=== PATIENT | male | born 1960 | race Caucasian/White ===

== ENCOUNTER → 2023-08-20 | Outpatient (CLI) | payer BC, SELFPAY ==
--- OUTSIDE RECORDS SUMMARY | 2023-08-20 12:28 | XMS RPT_ITS | CCD ---
Author Name Unknown Address [address] [place] [address] Organization [facility] Care Team Providers Care Analytical Lab Technician Name Role Phone Denice Figueroa Unavailable Unavailable SEALKELLY SHAISTA JJavier Unavailable Unavailable SEALKELLY, SHAISTA JJavier Unavailable Unavailable SEALOCK, SHAISTA J. Unavailable Unavailable SEALKELLY SHAISTA JJavier Unavailable Unavailable Unavailable Primary Care Provider Unavailabl e Unavailable Primary Care Provider Unavailabl e Unavailable Primary Care Provider Unavailabl e SELF, SELF Referring Unavailable JULIUS CHOUDHARY Attending Unavailable Stanley GUTIERREZ, Gonzalez Torres Unavailable [facility] Unavailable Niurka GUTIERREZ, Dr. Ricardo Damon Unavailable [phone] Qing GUTIERREZ, Dr. Sap[facility]ks [facility]) Unavailable [facility], . [facility] office Unavailable Dr. Jamil Chapa MD Unavailable [phone] Marty GUTIERREZ, Dr. Chaudhary Unavailable [facility] Unavailable Yesica HARRISON, Shital Unavailable Charissa Knight PA-C Unavailable [phone] Brandi Garcia LPN Unavailable Unavailable Dianne Tabares LPN Unavailable Unavailable Moe Gonzalez MD Unavailable Josafat Dunlap PA-C Unavailable Mary Venegas LPN Unavailable Unavailable Gabbie KANG, Мария A Unavailable Unavaila ble Marthey RAILROAD DETECTIVE, Shaista Unavailable Unavailable Dorian RAILROAD DETECTIVE, Chas Unavailable Unavailable Igor RAILROAD DETECTIVE, Anali Unavailable Unavailable Jed KING, Seamus Reyes Unavailable Sarah POINTER HELPER, Lindsay Unavailable Unavailable Curt RAILROAD DETECTIVE, Jayda M Unavailable Unavailab yelitza Hurst RAILROAD DETECTIVE, Lesly Marcelo Unavailable Unavailab yelitza Davis MA, Mary Unavailable Unavailable Rohan Gonzales MD Unavailable Unavailable Unavailable GONZALEZ ANGEL Primary Care Unavailable GONZALEZ ANGEL Consulting Unavailable GONZALEZ ANGEL Attending Unavailable GONZALEZ ANGEL Admitting Unavailable PROVIDER, UNKNOWN Consulting Unavailable PROVIDER, UNKNOWN Consulting Unavailable PROVIDER, UNKNOWN Consulting Unavailable GONZALEZ ANGEL Consulting Unavailable SAEMUS ADKINS Admitting Unavailable SEAMUS ADKINS Primary Care Unavailable SEAMUS ADKINS Attending Unavailable PROVIDER, UNKNOWN Consulting Unavailable PROVIDER, UNKNOWN Consulting Unavailable PROVIDER, UNKNOWN Consulting Unavailable Allergies Allergy Classification Reported Allergen(s) Allergy Type Date of Onset Reaction(s) Facility (1 source) Ketorolac trometamol Propensity to adverse reactions to drug 06-21-2023 [facility] Medications Current Medications Medication Drug Class(es) Dates Sig (Normalized) Sig (Original) albuterol 0.83 mg/ml inhalation solution (4 sources) beta2-Adrenergic Agonist Start: 08-02-2023 albuterol sulfate 2.5 mg/3 mL (0.083 %) solution for nebulization ; 1 (one) nebule every 4-6 hours as needed for 0 days Quantity: 1 {Packet} Refills: 5 Ordered: 02-Aug-2023 MD Gonzalez Angel Start: 02-Aug-2023 Comments: Medication taken as needed. Completed/Discontinued Medications Medication Drug Class(es) Dates Sig (Normalized) Sig (Original) amLODIPine 5 mg oral tablet (2 sources) Dihydropyridine Calcium Channel Augustus Start: 08-31-2022 End: 09-28-2022 take 1 tablet by mouth once daily amLODIPine Besylate 5 MG Oral Tablet ; 1 (one) Tablet qd for 0 days Quantity: 90 {Tablet} Refills: 1 Ordered: 28-Sep-2022 MD Gonzalez Angel Start: 31-Aug-2022 End: 28-Sep-2022 Status: Inactive amoxicillin 875 mg / clavulanate 125 mg oral tablet (2 sources) Penicillin-class Antibacterial Start: 07-14-2023 End: 07-23-2023 amoxicillin 875 mg-potassium clavulanate 125 mg tablet ; 1 (one) tablet bid for 10 days Quantity: 20 {Tablet} Refills: 0 Ordered: 23-Jul-2023 PEARL Cartwright Start: 14-Jul-2023 End: 23-Jul-2023 Status: Inactive azithromycin 500 mg oral tablet (2 sources) Macrolide Antimicrobial Start: 10-19-2022 End: 10-22-2022 take 1 tablet by mouth once daily Zithromax 500 MG Oral Tablet ; 1 (one) Tablet qd for 3 days Quantity: 3 {Tablet} Refills: 0 Ordered: 19-Oct-2022 MD Gonzalez Angel Start: 19-Oct-2022 End: 22-Oct-2022 Status: Inactive benzonatate 100 mg oral capsule (2 sources) Non-narcotic Antitussive Start: 06-01-2023 End: 06-25-2023 benzonatate 100 mg capsule ; 1 (one) capsule tid prn cough for 0 days Quantity: 30 {Capsule} Refills: 0 Ordered: 25-Jun-2023 CHRISTINE Adkins Start: 01-Jun-2023 End: 25-Jun-2023 Status: Inactive cephalexin 500 mg oral capsule (2 sources) Cephalosporin Antibacterial Start: 05-27-2023 End: 06-06-2023 cephALEXin 500 mg capsule ; 2 (two) Capsule bid for 10 days Quantity: 40 {Capsule} Refills: 0 Ordered: 27-May-2023 MD Gonzalez Angel Start: 27-May-2023 End: 06-Jun-2023 Status: Inactive ciprofloxacin 500 mg oral tablet (4 sources) Quinolone Antimicrobial Start: 07-05-2023 End: 07-12-2023 ciprofloxacin 500 mg tablet ; 1 (one) Tablet two times daily for 7 days Quantity: 14 {Tablet} Refills: 0 Ordered: 05-Jul-2023 MD Gonzalez Angel Start: 05-Jul-2023 End: 12-Jul-2023 Status: Inactive Problems Active Problems Problem Classification Problem Date Documented Da te Episodic/Chronic Calculus of urinary tract (4 sources) Kidney stone; Translations: [Calculus of kidney] 03-21-2018 Episodic Chronic obstructive pulmonary disease and bronchiectasis (4 sources) Chronic obstructive lung disease; Translations: [Chronic obstructive pulmonary disease, unspecified] 08-11-2023 Chronic Chronic obstructive pulmonary disease and bronchiectasis (2 sources) Bronchitis; Translations: [Bronchitis, not specified as acute or chronic] 10-19-2022 Episodic Diverticulosis and diverticulitis (4 sources) Diverticulitis; Translations: [Diverticulitis of intestine, part unspecified, without perforation or abscess without bleeding] 07-23-2023 Chronic Essential hypertension (20 sources) Essential hypertension; Translations: [Essential (primary) hypertension] Onset: 03-09-2017 06-21-2023 Chronic Gastrointestinal hemorrhage (4 sources) Rectal hemorrhage; Translations: [Hemorrhage of anus and rectum] 09-16-2020 Episodic Genitourinary symptoms and ill-defined conditions (20 sources) Retention of urine; Translations: [Retention of urine, unspecified] Onset: 05-27-2015 06-21-2023 Episodic Gout and other crystal arthropathies (20 sources) Chronic primary gouty arthritis; Translations: [Idiopathic chronic gout, multiple sites, without tophus (tophi)] Onset: 03-09-2017 06-21-2023 Chronic Hyperplasia of prostate (16 sources) Benign prostatic hyperplasia; Translations: [Benign prostatic hyperplasia without lower urinary tract symptoms] 07-23-2023 Chronic Immunizations and screening for infectious disease (2 sources) Requires diphtheria, tetanus and pertussis vaccination; Translations: [Encounter for immunization] 03-18-2021 Episodic Miscellaneous mental health disorders (2 sources) Psychosexual dysfunction associated with inhibited sexual excitement; Translations: [Other sexual dysfunction not due to a substance or known physiological condition] 06-30-2011 Chronic Neoplasms of unspecified nature or uncertain behavior (1 source) Ependymoma ; 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, unspecified] Onset: 04-21-2017 06-21-2023 Chronic Neoplasms of unspecified nature or uncertain behavior (3 sources) Neoplastic disease; Translations: [Neoplasm of unspecified behavior of bone, soft tissue, and skin] Onset: 04-05-2017 06-21-2023 Episodic Osteoarthritis (4 sources) Osteoarthritis of left knee joint; Translations: [Unilateral primary osteoarthritis, left knee] 12-01-2023 Chronic Other aftercare (2 sources) Surgical follow-up; Translations: [Encounter for removal of sutures] 04-16-2017 Episodic Other aftercare (8 sources) Long-term (current) use of other medications 07-29-2011 Episodic Other connective tissue disease (2 sources) Inflammation of rotator cuff tendon; Translations: [Other shoulder lesions, unspecified shoulder] 06-20-2012 Episodic Other diseases of bladder and urethra (20 sources) Neurogenic bladder; Translations: [Neuromuscular dysfunction of bladder, unspecified] 07-23-2023 Chronic Other gastrointestinal disorders (8 sources) Constipation; Translations: [Constipation, unspecified] 09-14-2022 Episodic Other gastrointestinal disorders (8 sources) Diarrhea; Translations: [Diarrhea, unspecified] 06-02-2021 Episodic Past or Other Problems Problem Classification Problem Date Documented Date Episodic/Chronic Unclassified (1 source) WORK RELEASE FOR [employer] Onset: 05-19-2017 Unclassified (2 sources) Breathing trouble - The breathing trouble has been occurring in a persistent pattern for 1 day (Yesterday morning when he woke up he felt short of breath for a few hours. He did go to work and was feeling pretty good. 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 He wore two surgical masks. About 1:30am this morning, he woke up with nasal congestion and applied vicks to his nose. Fell back to sleep, then about 3:30am he woke up gasping for air and felt very short of breath, wheezy and chest tightness. He has trouble breathing until about 6am this morning.). The course has been decreasing. The breathing trouble is incapacitating ( I was scared , currently his symptoms are mild). It is described as tightness, shortness of breath and wheezing. The breathing trouble occurs when lying down. There has been no associated chest pain or fever / chills. Note for Breathing trouble : Patient was last seen by Dr. Angel on 07/14/2023 for cough. He was started on Augmentin X 10 days. He is currently scheduled for PFT on 07/27/2023. 07-23-2023 Unclassified (2 sources) Cold Symptoms - Symptoms include nasal congestion and productive cough. The onset was 1 month(s) ago. The symptoms occur constantly. The patient describes this as mild. Note for Upper respiratory infection : Has been on ATB w/ no effect. Was treated bu [facility] as COPD recent;ly 07-14-2023 Unclassified (2 sources) Cold Symptoms - Symptoms include productive cough and wheezing. Note for Upper respiratory infection : Pt had nasal congestion and runny nose for 2 weeks - was treated with Cephalexin on 05/27/2023 for sinusitis; given tessalon perles on 06/01 and Doxycycline on 06/07/2023. Current symptoms are cough, chest congestion, wheezing, and shortness of breath. 06-25-2023 Unclassified (2 sources) Cold Symptoms - Symptoms include runny nose, dry cough, fever and chills. The onset was 1 week(s) ago. The symptoms occur constantly. The patient describes this as moderate in severity and worsening. Current treatment includes allergy medications and acetaminophen. Note for Upper respiratory infection : Diarrhea. Covid test negative yesterday AM. reviewed by B 05-27-2023 Unclassified (2 sources) MCR Well Adult - In general the patient feels well with minor complaints (knee pain). The patient has a balanced diet. The patient does not exercise and sleeps 6 hours per night. The patient denies having trouble with bathing, dressing/grooming, toileting, preparing meals and ambulating. The patient denies having trouble with grocery shopping, driving, use of telephone, housework, laundry, preparing/taking medications and finances. Note for MCR Well Adult : Pt has a neurogenic bladder, self catheterizes 04-08-2023 Unclassified (2 sources) Red swollen face - Started with facial itching last evening, redness and swelling started this morning. Thinks an insect may have bit the back of his neck a few days ago. Also has started to drink an Herbal Tea (Tapee tea) last week to help with joint pain. reviewed by [facility] 11-17-2022 Unclassified (2 sources) Cough - The onset of the cough has been acute and has been occurring in a persistent pattern for 9 days. The course has been constant. The cough is characterized as productive of mucoid sputum. There is no sputum production. Associated symptoms include headache, nasal congestion, nasal discharge/stuffy nose and sore throat, while there is no fever. Note for Cough : mostly when laying down. reviewed by [facility] 10-19-2022 Unclassified (2 sources) UTI - Symptoms include urinary frequency, urinary urgency, hematuria, dark urine and flank pain (right side), but do not include dysuria, abdominal pain or back pain. The pain is located in the right flank. There is no radiation. The patient describes the pain as aching. Onset was sudden 2 day(s) ago. Onset followed catheterization (Patient regularly uses catheters at home due to a neurogenic bladder). The symptoms occur frequently. The patient describes this as moderate in severity and unchanged. Note for UTI : Tested positive for Covid 3 days ago. Reports mild COVID symptoms at this time and feels that he may be starting to improve. 10-13-2022 Unclassified (2 sources) Skin tags - Three skin tags on face. Here for removal. They get itchy and painful. bleed at time because they are easily traumatized. 08-03-2022 Unclassified (2 sources) Abdominal pain - The onset of the abdominal pain has been acute and has been occurring in an intermittent pattern for 6 days. The course has been recurrent. The pain is described as a moderate cramping. The pain is located in the entire abdomen. The symptoms are aggravated by meals (1/2 to 1 hour after eating). The symptoms have been associated with diarrhea and nausea, while the symptoms have not been associated with vomiting. Note for Abdominal pain : He had been eating a lot of tomatoes, cucumbers, and nuts 04-06-2022 Unclassified (2 sources) Well adult male - The patient feels well with minor complaints (Bilateral leg pain, right worse then left.), has good energy level and is sleeping well. The patient has a balanced diet. The patient exercises daily. The patient sleeps 6 (6-7) hours per night. Note for Well adult male : reviewed by [facility] 03-20-2022 Unclassified (2 sources) UTI - Symptoms include dysuria (burning in the area), hematuria and malodorous urine, but do not include urinary frequency, urinary urgency, dark urine, flank pain, abdominal pain or back pain. There is no assiciated pain. There is no radiation. The patient describes the pain as burning. Onset was sudden 1 day(s) ago. There is no known event that preceded symptom onset. The symptoms occur intermittently. The patient describes this as moderate in severity and improving (no blood today). Symptoms are not relieved by phenazopyridine, urinary anesthetics, cranberry juice or non-opioid analgesics. Associated symptoms do not include fever, chills, nausea, vomiting, urinary incontinence, urinary retention, urinary hesitancy, nocturia or urethral discharge. Risk factors do not include indwelling catheter (but he does straight cath himself to relieve his bladder every time), fecal incontinence, current , menopause or diaphragm use. 10-20-2021 Unclassified (2 sources) Well Adult, male - The patient feels well with minor complaints (complains of constipation and left shoulder pain.), has good energy level and is sleeping well. The patient has a balanced diet and takes no supplemental vitamins & iron. The patient does not exercise. The patient sleeps 7 hours per night. Note for Well Adult, male : C/O left shoulder pain, injured it years ago when he fell off a dozer. Left hip also hurts , has been gradually worsening. 03-18-2021 Unclassified (2 sources) UTI - Symptoms include dysuria, urinary frequency, urinary urgency and back pain. The pain is located in the back. Onset was sudden 4 day(s) ago. The symptoms occur constantly. The patient describes this as moderate in severity and worsening. Note for UTI : reviewed by [facility] 12-16-2020 Unclassified (2 sources) Rectal bleeding - The rectal bleeding has been occurring for hours (Had bowel movement at 5am this morning, thinks there was blood streaked on toilet paper. Had 2nd bowel movement 30 minutes later, then noticed blood in the toilet water and on toilet paper, states that the toilet paper was saturated with bright red blood. Stool was loose and not painful. No previous history of rectal bleeding. Has had hemorrhoid issues in the past-when he wiped today, thinks that he felt that his hemorrhoids were swollen.). The bleeding is characterized as blood streaking of toilet paper and bloody toilet bowl water. The accompanying symptoms include pain (some burning pain), but do not include painful bowel movements or itching. Note for Rectal bleeding : Last colonoscopy done 08/2013. 04-18-2020 Unclassified (2 sources) UTI - Symptoms include dysuria, urinary frequency and urinary urgency, but do not include dark urine, malodorous urine or flank pain. Onset was sudden 3 day(s) ago. Onset followed catheterization. The symptoms occur constantly. The patient describes this as moderate in severity and worsening. Note for UTI : reviewed by [facility] 12-27-2019 Unclassified (2 sources) Flank pain - The onset of the flank pain has been acute and has been occurring in a persistent pattern for 3 days. The course has been constant. The pain is described as a moderate a dull ache pain. The flank pain is described as being located in the left flank , and it radiates to the suprapubic area. The symptoms have been associated with fever, hematuria, history of passing a stone and nausea. Note for Flank pain : he has had kidney stones in the past. He was in ER 4 days ago w it and a stone was seen on CT [facility]. He had left over narcotic from last incident of stone 03-21-2018 Unclassified (2 sources) Abdominal pain - The onset of the abdominal pain has been sudden and has been occurring in a persistent pattern for 6 hours. The pain is described as a moderate dull ache and colicky pain. The pain is located in the left upper quadrant and radiates to the left flank. Note for Abdominal pain : -h/o kidney stones. Feels nauseated. He cannot give a urine sample, normally uses a straight cath 4x daily and did not bring any supplies with him. 12-22-2017 Unclassified (2 sources) Review Test Results - Pt here today to discuss test results which he had done through his work. He had the Biometric Screening done and has some abnormal results and was required to see PCP to review and discuss. Has hx of HTN and Gout. Pt has results with him.b Lipids were borderline ( HDL 35 , LDL 126 ). 11-01-2017 Unclassified (2 sources) UTI - Symptoms include dysuria, urinary frequency and back pain. There is no radiation. The patient describes the pain as dull. Onset was sudden 1 day(s) ago. Onset followed catheterization. The symptoms occur constantly. The patient describes this as moderate in severity and worsening. Note for UTI : had back surgery last week. reviewed by B 04-13-2017 Unclassified (2 sources) Constipation - The onset of the constipation has been acute and has been occurring in a persistent pattern for 2 months. The course has been constant. The frequency of bowel movements has been 3 per week. The symptoms have no relieving factors. There has been no associated abdominal distention, abdominal pain, nausea or vomiting. Note for Constipation : Had a colonoscopy in 2012 or 2013. Firm stool. Round hard stools. He has a hx of neurogenic bladder as well. Neurosurgery consult was never done because of insurance issues. 11-18-2016 Unclassified (2 sources) UTI - Symptoms include urinary frequency, dark urine and malodorous urine. There is no assiciated pain. Onset was sudden 5 day(s) ago (Started Wednesday with fever but that has gone away. Then came the frequency, odor and dark urine.). Onset followed none (Pt cath's twice a day for hx of neurogenic bladder.). The patient describes this as mild and improving. Associated symptoms do not include fever (No fever today.), chills, nausea or vomiting. Note for UTI : Has not tried any relieving mediations. Pt was treated February 24 with Cipro for UTI and UTI did clear. reviewed by [facility] 04-24-2016 Unclassified (2 sources) UTI - Symptoms include dysuria, urinary frequency, urinary urgency and hematuria. Onset was sudden 3 day(s) ago. Onset followed catheterization (self caths twice a day.). The symptoms occur constantly. The patient describes this as moderate in severity and unchanged. Associated symptoms include chills and urinary retention, but do not include fever. Note for UTI : reviewed by [facility] 02-25-2016 Unclassified (2 sources) Change in bowel habits - The onset of the change has been acute and has been occurring in a persistent pattern for 1 year. The course has been increasing. The change is described as moderate. Note for Change in bowel habits : Complains of frequent bowel movements. Occasional constipation along with occasional loose stools. Has decreased energy. Had a colonoscopy a couple of years ago.There are also concerns regarding his innervation. Urology felt he has neurogenic bladder and wanted him to get evaluated by neurologyHe feels like his legs are heavy and weak. 01-21-2016 Unclassified (2 sources) Back pain - The onset of the back pain has been acute and has been occurring in a persistent pattern for 1 month. The course has been constant. The pain is characterized as a dull ache. The pain is located in the upper back and lower back. There are no precipitating factors. Note for Back pain : Insurance has required physical therapy before scheduling any other testing. Referral has been sent. Patient has not heard back for PT yet. 08-19-2015 Unclassified (2 sources) Increase blood pressure - Is currently on Lisinopril 10mg daily. Had an elevated blood pressure at [facility] physical. Here to discuss medication options.He also injured his left shoulder 2 weeks ago while carrying a heavy load in an awkward position. Fingers feel numb. pain radiates down left arm. 07-31-2015 Unclassified (2 sources) Back pain - The onset of the back pain has been acute and has been occurring in a persistent pattern for 3 days. The course has been increasing. The pain is characterized as stabbing and shooting. The pain is located in the lower back and radiates to the lateral aspect of right leg and lateral aspect of left leg. There are no precipitating factors. Note for Back pain : I last saw him for this in 2009. He has seen chiropracter in the past. 04-03-2014 Unclassified (2 sources) Well Adult, male - The patient feels well with no complaints (Pt is here today for Wellness Physical. Has not had Tetanus shot in years but declines one today. Has been fasting so lipid and glucose done. ). The patient is not using any method of contraception at this time. The patient has a balanced diet and takes no supplemental vitamins & iron. The patient exercises 3 - 4 times per week. The patient sleeps 6 hours per night. Note for Well Adult, male : reviewed by B 12-04-2013 Unclassified (2 sources) Wart Removal - Pt here today to have wart on right middle finger. Has had this for couple months. Has used OTC medication which helped a little but has never gone completely away. He has caught it on different things and it cracks open but does not bleed. Just itches and very irritating. Here for evaluation and possible removal. reviewed by B 10-27-2013 Unclassified (2 sources) Bowel Problems - Pt here today to discuss Bowels. He noticed couple months ago that he has problems with constipation. Has to work hard at moving bowels and when he does he feels like he has not completely emptied out. His stools are not hard. They are very soft and at times even watery. Last good BM was this morning and was real flakey in appearance and loose. . Does not think he ever had a colonoscopy. Denies any abdominal pain but says he will pass some gas but finds himself burping a lot. Has used some Gas X in past and helps maybe a little. Pt has been exercising and when he does sit up can have some stool can leak. 07-14-2013 Unclassified (2 sources) Diarrhea - The diarrhea has been occurring in a persistent pattern for 4 weeks. The course has been recurrent. The stools are watery. The frequency of bowel movements has been 4 per day. There has been no associated abdominal pain. Note for Diarrhea : Has had diarrhea ever since prostate surgery October 27. He had laser vaporization of prostate. He was on ATBx for 10 days after surgery. Going 4-6 times per day . States it is very foul smelling and slimy 11-30-2012 Unclassified (2 sources) Urine problems - Pt here this evening because he is having problems holding his urine. This has been going on for about 3-4 months. Denies any pain or burning with urination. He states that there is no warning- he all of a sudden has to urinate and its come to the point where he may need to wear some depends to wear. He just is unable to control flow. Pt is unable to get specimen at this time.He is also here because he thinks he may have hurt left rotator cuff. He jumped off a dozer in February and landed wrong and hurt left shoulder.. Has limitied ROM and is painful. Has never had this checked and has not had any testing. He was hoping that he just strained or sprained it but he is wondering if he may have torn it. reviewed by [facility] 06-20-2012 Unclassified (2 sources) Cold Symptoms - Symptoms include sneezing, runny nose, purulent discharge, sore throat, dry cough (just started this morning.) and headache (and some SOB. Pulse ox 93%.), but do not include ear pain. The onset was sudden 3 day(s) ago. The patient describes this as moderate in severity and worsening (started in yesterday with joints aches and pains and had fever and chills all day. No fever right now.). Current treatment includes non-prescription cold medication (Sudafed on Wednesday.). Note for Cold Symptoms : reviewed by [facility] 12-21-2011 Unclassified (2 sources) Well Adult, male - The patient feels well with minor complaints (Has head cold, congestion. Is congested mainly in head runny nose. No fever. No ear pain or s/t. SLight cough. Started about 7 days ago. Only using nyquil at night to sleep.). Patient has not had bone density screening. Date of most recent cholesterol screening : (2008). Date of most recent glucose screening : (2008 and result was 92.). Patient has not had a Zostavax vaccine. Patient has not had a Pneumovax vaccine. Patient has not received a recent influenza vaccine. Last Tetanus booster: more than 10 year(s) ago. The patient has a balanced diet. Patient exercises 3 - 4 times per week (walks and splits wood several times a week.). Patient sleeps 7 hours per night. Note for Well Adult, male : reviewed by [facility] 10-30-2011 Unclassified (2 sources) Consultation - Would like to discuss personal issue. 06-30-2011 Urinary tract infections (4 sources) Urinary tract infections 06-24-2022 Results Test Name Value Interpretation Reference Range Facil ity Vital Signs Date Time Vital Sign Value Performing Clinician Faci lity 07-23-2023 10:15-0500 Body height 180.97 cm Мария Cartwright RN [employer] 07-23-2023 10:15-0500 Body mass index (BMI) [Ratio] 39.06 kg/m2 Мария Cartwright RN [employer] 07-23-2023 10:15-0500 Body surface area Derived from formula 2.45 m2 Мария Cartwright RN [employer]. 07-23-2023 10:15-0500 Body temperature 97.5 [degF] Мария Cartwright RN [employer] Encounters Encounter Date Encounter Type Care Provider Facility Start: 08-11-2023 End: 08-11-2023 Orders Gonzalez Angel MD Work Phone: [employer] Start: 07-27-2023 End: 07-27-[address] [facility] Start: 07-23-2023 End: 07-23-2023 Office outpatient visit 15 minutes Gonzalez [facility] MD [facility] Start: 07-14-2023 End: 07-14-2023 Office outpatient visit 15 minutes Gonzalez Angel MD Work Phone: [facility] Start: 06-25-2023 End: 06-25-[address] [facility] Start: 06-25-2023 End: 06-25-2023 Office outpatient visit 15 minutes Gonzalez [facility] Start: 06-21-2023 ambulatory SELF SELF Facility:[facility] Start: 06-21-2023 End: 06-21-2023 Office outpatient new 45 minutes Julius Choudhary MD Work Phone: [facility] Procedures Date Procedure Procedure Detail Performing Clinician Start: 07-14-2023 End: 08-11-2023 Brncdilat rspse spmtry pre&post-brncdilat admn Gonzalez Angel MD Work Phone: Start: 06-25-2023 End: 06-25-2023 Pressurized/nonpressurize d inhalation treatment Seamus Adkins PA-C Work Phone: Start: 06-25-2023 End: 06-28-2023 Chest x-ray Seamus Ashraf Work Phone: Plan of Treatment Date Care Activity Detail Author Start: 10-13-2023 Patient encounter procedure Medical; RTN OFFICE VISIT - 6 mos rtn [employer] Start: 13-Oct-2023 7:10 MD Gonzalez Angel [facility] Start: 04-23-2023 Influenza vaccination INFLUENZA VACCINE (#1) [facility] Start: 06-02-2021 Myocardial spect multiple studies Lexiscan Cardiolite Stress Test (24665) Start: 02-Jun-2021 Intent [facility] Start: 04-23-2021 Influenza vaccination given INFLUENZA VACCINE (#1) [facility] Start: 04-23-2020 Influenza vaccination given INFLUENZA VACCINE (#1) [facility] Start: 2009 Colonoscopy COLONOSCOPY 10 YR [facility] Start: 2009 Prostate specific antigen measurement PROSTATE CANCER SCREENING DISCUSSION [facility] Start: 2009 Screening for malignant neoplasm of colon [facility] Start: 2009 Zoster vaccine hzv live for subcutaneous use ZOSTER (SHINGLES) VACCINE (1 of 2) [facility] Start: 2004 Screening for malignant neoplasm of colon COLORECTAL CANCER SCREENING DISCUSSION [facility] Start: 1999 Lipid panel LIPID SCREENING [facility] Start: 1994 Fasting lipid profile LIPID SCREENING [facility] Start: 1978 Third diphtheria, tetanus and acellular pertussis (DTaP) vaccination TDAP (ADULT) [facility] Start: 1977 ANNUAL WELLNESS VISIT ANNUAL WELLNESS VISIT [facility] Start: 1974 HIV screening HIV SCREENING DISCUSSION [facility] Start: 1971 Adult depression screening assessment DEPRESSION SCREENING [facility] Start: 1971 Depression screening using PHQ-9 (Patient Health Questionnaire 9) score DEPRESSION SCREENING [facility] Start: 1970 Diphtheria + pertussis + tetanus vaccine (product) DTAP/TDAP/TD VACCINE (1 - Tdap) [facility] Start: 1959 COVID-19 VACCINE (#1) COVID-19 VACCINE (#1) [facility] Start: 1959 Hepatitis C screening [facility] Start: 1959 Tetanus vaccination TETANUS [facility] Sumeet post-voiding residual urine&/bladder cap DE SUMEET,POST-VOID RES,US,NON-IMAGING DE Charge Routine Urinary retention Ordered: 06/21/2023 [facility] Immunizations Immunization Date Immunization Notes Care Provider Fa cilipoly 07-29-2022 influenza, high dose seasonal, preservative-free Gonzalez Angel MD Work Phone: [facility]. 05-10-2022 COVID-Pfizer (30 MCG/0.3 ML) Gonzalez Angel MD Work Phone: [facility]. 07-25-2021 COVID-Moderna (100 MCG/0.5 ML) Gonzalez Angel MD Work Phone: [facility] 06-23-2021 influenza, injectabl e, quadrivalent, contains preservative Gonzalez Angel MD Work Phone: [facility]; [facility]. 03-18-2021 tetanus toxoid, redu olivier diphtheria toxoid, and acellular pertussis vaccine, adsorbed Gonzalez Angel MD Work Phone: [facility]; [facility] Payers Date Payer Category Payer Unknown [id number] 2022 Unknown [id number] 1959 Unknown [id number] 1959 Unknown [id number] 1959 Unknown [id number] Social History Date Type Detail Facility Tobacco smoking stat [facility] Unknown if ever smoked [facility] Start: 1960 Sex Assigned At Not on file [facility] Start: 06-21-2023 Tobacco smoking stat [facility] Ex-smoker [facility] End: 08-23-2002 History of tobacco use Current smoker [facility] End: 08-23-2002 History of tobacco use Cigarette Smoker [facility] Start: 06-21-2023 Tobacco use and exposure User of smokeless tobacco [facility] History of tobacco use Snuff User [facility] Start: 06-21-2023 Alcohol intake Ex-drinker (finding) [facility] Start: 06-21-2023 History of Social function [facility]; [facility] Start: 06-21-2023 Tobacco use panel [facility] Alcohol Use: Alcohol Use: ; Moderate alcohol use. [facility] [employer] [facility] Tobacco Use: Tobacco Use: ; F ormer smoker. [facility]; [employer] [facility] Male [facility] [employer]; [employer] [facility] Work Phone: Moderate alcohol use [facility]; [facility] Work Phone: History of Present illness Narrative 06-21-2023 Madison Castaneda - 06/21/2023 9:45 AM FLAKITOTScosta Choudhary MD - 06/21/2023 9:45 AM EDT Note Date & Type Note Facility 06-21-2023 History of Present illness Narrative Bladder scan was performed for a residual of 30 ml. Patient tolerated well with no complaints. Results recorded to IHIS flow sheet Referring provider: Self, Self Chief Complaint Urinary retention, second opinion HPI Mr. Fulton is a 63 y.o. male with history of HTN, ED, gout who presents with urinary retention. He had issues with urinary retention ~8 years ago and had a PVP but continued to have retention. He has been doing CIC since that time. 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 Urinary symptoms unchanged after that surgery. He was seen by the [facility] for his persistent retention and had urodynamics which showed an atonic bladder. Would like a second opinion. He does well with CIC at home, generally no issues. His main complaint is that in the last month he has had a URI and the coughing causes him to leak occasionally. Past Medical History Past Medical History: Diagnosis Date Arthritis Erectile dysfunction Essential hypertension, benign Kidney stones Urinary retention Past Surgical History Past Surgical History: Procedure Laterality Date APPENDECTOMY BACK SURGERY cyst removed from spinal cord Medications Current Outpatient Medications Medication Sig Dispense Refill Allopurinol 300 MG tablet Take 0.5 tablets by mouth daily. lisinopril 40 MG tablet Take 1 tablet by mouth daily. tadalafil 20 MG tablet Take 1 tablet by mouth as needed. No current facility-administered medications for this visit. Allergies Allergies Allergen Reactions Toradol [Ketorolac Tromethamine] Psychosis Social History Social History Socioeconomic History Marital status: Single Tobacco Use Smoking status: Former Types: Cigarettes Quit date: 2002 Years since quittin.8 Smokeless tobacco: Current Types: Snuff Vaping Use Vaping Use: Never used Substance and Sexual Activity Alcohol use: Not Currently Drug use: Not Currently Family History No family history on file. Physical Exam BP (!) (P) 158/103 (BP Location: Right arm, BP Position: Sitting) Pulse (P) 73 Temp 98.2 F (36.8 C) Ht (P) 1.803 m (5' 11 ) Wt 126 kg (277 lb 11.2 oz) SpO2 (P) 93% BMI (P) 38.73 kg/m Smoking Status Former Body mass index is 38.73 kg/m (pended). Constitutional: NAD Pulmonary: Respirations are even and non-labored bilaterally. Neurological: A + O x 3 Extremities: CAROLIN x 4 Labs No results found for: TESTTOTBYLCM , TESTOSTERONE , TESTOSFREEDI , TESTOSTFR , SEXHORMBNDG , ESTRADIOLENH , PROLACTIN , FSH , LH , HCT , PSA No results found for: HGBA1C No results found for: TSH , IGU05OAY , XNB04SQM , TSHBASELINE , TSHULTRASEN No results found for: CHOLESTEROL , CHOLESTEPOCT , HDL , CHOLHDL , CHOLTOTALHDL The ASCVD Risk score (Cato DK, et al., 2019) failed to calculate for the following reasons: Cannot find a previous HDL lab Cannot find a previous total cholesterol lab Imaging I personally reviewed the following images: Assessment/Plan 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 - Long discussion with the patient that this is likely related to his thoracic tumor that has been resected. Likely this was causing problems prior to it being recognized. - I discussed that with an atonic bladder, the only options are CIC, SPT, or urethral catheter. All of these carry a risk of UTI, although CIC likely with the lowest risk. - Outside of his URI with coughing, he generally does very well with CIC 4-6 x per day - Advised he be evaluated yearly here or with his local urologist Julius Choudhary MD Master Control Technician of Urology documented in this encounter [facility] Evaluation note Note Date & Type Note Facility documented in this encounter [facility] Summary Purpose Family History No Family History Records Found Cancer Status:Active Comments:Father. Brother. Had throat cancer Cancer Status:Active Comments:Father. Brother. 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 Additional Source Comments (unrecognized sect ion and content) No Status Records FoundNo Status Records FoundNo Status Records FoundNo Status Records FoundNo Status Records FoundNo Status Records Found INFORMATION SOURCE (unrecogn ized section and content) DATE CREATED AUTHOR AUTHOR'S ORGANIZ ATION 04/27/2018 [facility] DATE CREATED AUTHOR AUTHOR'S ORGANIZ ATION 06/26/2021 [facility] DATE CREATED AUTHOR AUTHOR'S ORGANIZ ATION 04/02/2023 [facility] DATE CREATED AUTHOR AUTHOR'S ORGANIZ ATION 06/21/2023 [facility] DATE CREATED AUTHOR AUTHOR'S ORGANIZ ATION 08/20/2023 [facility] Reason for Visit (unrecogniz ed section and content) Specialty Diagnoses / Procedures Referred By Contac t Referred To Contact Urology Diagnoses cannot empty his bladder, Second opinion Procedures NEW UROLOGY Self, Self Julius Cohudhary MD [id number] [facility] [address] [place] [address] Referral ID Status Reason Start Date Expiration Date V isits Requested Visits Authorized [id number] Pending Review 06/21/2023 07/15/2024 1 1 FOR RECORDS PERTAINING TO PATIENTS WHO ARE OR HAVE BEEN ENROLLED IN A CHEMICAL DEPENDENCY/SUBSTANCEABUSE PROGRAM, SOME INFORMATION MAY BE OMITTED. This clinical summary was aggregated from multiple sources. Caution should be exercised in using it in the provision of clinical care. This summary normalizes information from multiple sources, and as a consequence, information in this document may materially change the coding, format and clinical context of patient data. In addition, data may be omitted in some cases. CLINICAL DECISIONS SHOULD BE BASED ON THE PRIMARY CLINICAL RECORDS. [facility] [employer] [facility]. provides no warranty or guarantee of the accuracy or completeness of information in this document.
[2023-08-20 12:50] VITALS: PULSE 79; PULSE 90; PULSE 93; PULSE 94; PULSE 96; PULSE 97; PULSE 99; O2SAT 91; O2SAT 92; O2SAT 93; O2SAT 94; O2SAT 95; O2SAT 96
--- NOTE | 2023-08-22 06:53 | PCM.PSN.6M ---
PSN 6 Minute Walk Test 6 Minute Walk Test 6 Minute Walk Test: 6 Minute Walk Test PSN:6-Minute Walk Test Start: 08/20/23 12:50 Freq: Status: Active Protocol: RESP.6MINW Document 08/20/23 12:50 EW (Rec: 08/20/23 13:08 EW Desktop) 6 Minute Walk Test Date Performed 08/20/23 Time Performed 12:30 Height 6 ft Weight: 280 lb Weight in Pounds 280.[address]: Musa Montgomery Assistive device used: None Pre-test Oxygen Delivery Method Room Air Pulse Ox 93 Pulse Rate (60-100) 79 Dyspnea Andria Scale (0-10) 2 Exertion Andria Scale (6-20) 8 1st minute Oxygen Delivery Method Room Air Pulse Ox 91 Pulse Rate (60-100) 93 2nd minute Oxygen Delivery Method Room Air Pulse Ox 92 Pulse Rate (60-100) 96 3rd minute Oxygen Delivery Method Room Air Pulse Ox 93 Pulse Rate (60-100) 97 4th minute Oxygen Delivery Method Room Air Pulse Ox 94 Pulse Rate (60-100) 97 5th minute Oxygen Delivery Method Room Air Pulse Ox 94 Pulse Rate (60-100) 99 6th minute Oxygen Delivery Method Room Air Pulse Ox 95 Pulse Rate (60-100) 94 Post-test Oxygen Delivery Method Room Air Pulse Ox 96 Pulse Rate (60-100) 90 Dyspnea Andria Scale (0-10) 2 Exertion Andria Scale (6-20) 9 Full Laps Walked 18 Partial Lap, Number of Tiles Walked 0 Total Distance Walked (ft) 1062 Interpretation Interpretation: The patient ambulated 1062 feet over the course of 6 minutes beginning on room air without assistive devices. Pretesting oxygen saturation was noted to be 93% on room air. With ambulation, the patricia oxygen saturation was 91%. There was no significant exertional oxygen desaturation. Recommendations Recommendations: There is no indication for the use of supplemental oxygen at this time.
== END | disposition home or self-care (01) ==
LOC: PSN 12:17
PROVIDERS: PCP Family Medicine; Referring Provider Internal Medicine Critical Care Medicine; Visit Provider Internal Medicine Critical Care Medicine
DX: R06.2 Wheezing (principal)
CPT/HCPCS: 94618

== ENCOUNTER → 2023-10-07 | Outpatient (CLI) | payer BC, SELFPAY ==
--- NOTE | 2023-10-07 08:02 | ECHOCS_ITS ---
Reason For Study: Dyspnea/SOB Procedure This was a 2D Doppler, Color Flow transthoracic echocardiogram. The study was technically difficult. Contrast injection was performed. Exam performed in department. Left Ventricle Normal LV size. The estimated ejection fraction is 55 %. No evidence for diastolic dysfunction. No regional wall motion abnormalities noted. Right Ventricle Normal RV size. Normal systolic function. Atria Normal left atrium. Normal right atrium. No doppler evidence for ASD. Mitral Valve There is no mitral valve stenosis. No mitral valve insufficiency. Tricuspid Valve There is no tricuspid stenosis. Unable to estimate RV systolic pressure due to inadequate jet, pulmonary artery pressure probably normal. Aortic Valve Trisinus/trileaflet aortic valve. There is no aortic stenosis. No aortic valve insufficiency. Pulmonic Valve There is no pulmonic valvular stenosis. No pulmonic valve insufficiency. Great Vessels Normal aortic root. Pericardium/Pleural No pericardial effusion. Medication 20 gauge I.V. with prn adaptor inserted into right arm. Diluted definity 2ml given slow IV push to enhance endocardial definition. MMode/2D Measurements & Calculations LVIDd: 6.0 cm IVSd: 0.95 cm Ao root diam: 3.9 cm LVIDs: 4.7 cm LVPWd: 0.97 cm LA dimension: 4.2 cm FS: 21.2 % LAV(MOD-bp): 59.3 ml LVAd ap4: 41.7 cm2 SV(MOD-sp4): 82.2 ml LAV(MOD-bp) Indexed: 24.1 ml/m2 LVLd ap4: 8.8 cm LAV(MOD-sp2): 50.2 ml EDV(MOD-sp4): 159.2 ml LAV(MOD-sp4): 63.0 ml EDV(sp4-el): 167.1 ml LVAs ap4: 27.5 cm2 LVLs ap4: 7.9 cm ESV(MOD-sp4): 77.0 ml ESV(sp4-el): 81.1 ml EF(MOD-sp4): 51.6 % EF(sp4-el): 51.5 % SV(sp4-el): 86.0 ml LA A4 area: 21.9 cm2 RA A4 area: 20.1 cm2 TAPSE: 1.7 cm Time Measurements MV dec time: 0.18 sec Doppler Measurements & Calculations MV E max tawanda: 53.6 cm/sec Lat Peak E' Tawanda: 6.5 cm/sec Med Peak E' Tawanda: 7.2 cm/sec MV A max tawanda: 62.1 cm/sec E/E' lat: 8.3 E/E' med: 7.5 MV E/A: 0.86 MV V2 max: 74.0 cm/sec MV P1/2t max tawanda: 71.4 cm/sec Ao V2 max: 105.2 cm/sec MV max P.2 mmHg MV P1/2t: 74.3 msec Ao max P.4 mmHg MV V2 mean: 43.7 cm/sec Ao V2 mean: 73.6 cm/sec MV mean P.88 mmHg MV dec slope: 281.7 cm/sec2 Ao mean P.5 mmHg MV V2 VTI: 24.1 cm MVA(P1/2t): 3.0 cm2 Ao V2 VTI: 22.8 cm LV V1 max: 77.6 cm/sec PA V2 max: 61.5 cm/sec LV V1 max P.4 mmHg ECHO/Echo Complete W/ Contrast Interpretation Summary The estimated ejection fraction is 55 %. No evidence for diastolic dysfunction. Ordering Physician: Musa Montgomery Referring Physician: Delon Angel Performed By: Gregorio Perez RCS
--- OUTSIDE RECORDS SUMMARY | 2023-10-07 08:09 | XMS RPT_ITS | CCD ---
Author Name Unknown Address [address] [place] [address] Organization [facility] Care Team Providers Care Lithographic Proofer Apprentice Name Role Phone Denice Figueroa Unavailable Unavailable SEALOCK, SHAISTA JJavier Unavailable Unavailable SEALOCK, SHAISTA J. Unavailable Unavailable SEALOCK, SHAISTA J. Unavailable Unavailable SEALOCK, SHAISTA J. Unavailable Unavailable Unavailable Primary Care Provider Unavailabl e Unavailable Primary Care Provider Unavailabl e Unavailable Primary Care Provider Unavailabl e SELF, SELF Referring Unavailable JULIUS CHOUDHARY Attending Unavailable Stanley GUTIERREZ, Gonzalez Torres Unavailable Medicine [facility], Pulmonary Unavailable Niurka GUTIERREZ, Dr. Ricardo Damon Unavailable Qing GUTIERREZ, Dr. Sparks ([facility]) Unavailable [facility], . [facility] office Unavailable Dr. Jamil Chapa MD Unavailable Marty GUTIERREZ, Dr. Chaudhary Unavailable [facility] Unavailable [phone] Yesica HARRISON, Shital Unavailable Charissa Knight PA-C Unavailable Brandi Garcia LPN Unavailable Unavailable Dianne Tabares LPN Unavailable Unavailable Moe Gonzalez MD Unavailable Josafat Dunlap PA-C Unavailable [phone] Theo HARRISON, Mary Unavailable Unavailable Gabbie KANG, Мария Shea Unavailable Unavaila ble Roge LOPEZN, Shaista Unavailable Unavailable Dorian LOPEZN, Chas Unavailable Unavailable Igor LOPEZN, Anali Unavailable Unavailable Adkins PA-C, Seamus J Unavailable Sarah PRO SHOP ATTENDANT, Lindsay Unavailable Unavailable Curt ENGINEERING TEST SPECIALIST, Jayda M Unavailable Unavailab yelitza Pelayo LPN, Lesly Marcelo Unavailable Unavailab yelitza Davis MA, Mary Unavailable Unavailable Rohan Gonzales MD Unavailable Unavailable Unavailable ABHIJIT ROSENBAUM MD Admitting Unavailable ABHIJIT ROESNBAUM MD Primary Care Unavailable ABHIJIT ROSENBAUM MD Attending Unavailable GONZALEZ ANGEL Consulting Unavailable PROVIDER, UNKNOWN Consulting Unavailable PROVIDER, UNKNOWN Consulting Unavailable PROVIDER, UNKNOWN Consulting Unavailable GONZALEZ ANGEL Admitting Unavailable GONZALEZ ANGEL Primary Care Unavailable GONZALEZ ANGEL Consulting Unavailable GONZALEZ ANGEL Attending Unavailable PROVIDER, UNKNOWN Consulting Unavailable PROVIDER, UNKNOWN Consulting Unavailable PROVIDER, UNKNOWN Consulting Unavailable SEAMUS ADKINS Admitting Unavailable SEAMUS ADKINS Primary Care Unavailable SEAMUS ADKINS Attending Unavailable GONZALEZ ANGEL Consulting Unavailable PROVIDER, UNKNOWN Consulting Unavailable PROVIDER, UNKNOWN Consulting Unavailable PROVIDER, UNKNOWN Consulting Unavailable Allergies Allergy Classification Reported Allergen(s) Allergy Type Date of Onset Reaction(s) Facility (1 source) Ketorolac trometamol Propensity to adverse reactions to drug 3 Psychosis [facility] (1 source) traMADol Drug Allergy [facility] Repository Medications Current Medications Medication Drug Class(es) Dates Sig (Normalized) Sig (Original) albuterol 0.83 mg/ml inhalation solution (20 sources) beta2-Adrenergic Agonist Start: 08-02-2023 albuterol sulfate 2.5 mg/3 mL (0.083 %) solution for nebulization ; 1 (one) nebule every 4-6 hours as needed for 0 days Quantity: 1 {Packet} Refills: 5 Ordered: 02-Aug-2023 MD Gonzalez Angel Start: 02-Aug-2023 Comments: Medication taken as needed. Completed/Discontinued Medications Medication Drug Class(es) Dates Sig (Normalized) Sig (Original) amLODIPine 5 mg oral tablet (11 sources) Dihydropyridine Calcium Channel Augustus Start: 08-31-2022 End: 09-28-2022 take 1 tablet by mouth once daily amLODIPine Besylate 5 MG Oral Tablet ; 1 (one) Tablet qd for 0 days Quantity: 90 {Tablet} Refills: 1 Ordered: 28-Sep-2022 MD Gonzalez Angel Start: 31-Aug-2022 End: 28-Sep-2022 Status: Inactive amoxicillin 875 mg / clavulanate 125 mg oral tablet (11 sources) Penicillin-class Antibacterial Start: 07-14-2023 End: 07-23-2023 amoxicillin 875 mg-potassium clavulanate 125 mg tablet ; 1 (one) tablet bid for 10 days Quantity: 20 {Tablet} Refills: 0 Ordered: 23-Jul-2023 PEARL Cartwright Start: 14-Jul-2023 End: 23-Jul-2023 Status: Inactive azithromycin 500 mg oral tablet (11 sources) Macrolide Antimicrobial Start: 10-19-2022 End: 10-22-2022 take 1 tablet by mouth once daily Zithromax 500 MG Oral Tablet ; 1 (one) Tablet qd for 3 days Quantity: 3 {Tablet} Refills: 0 Ordered: 19-Oct-2022 MD Gonzalez Angel Start: 19-Oct-2022 End: 22-Oct-2022 Status: Inactive benzonatate 100 mg oral capsule (11 sources) Non-narcotic Antitussive Start: 06-01-2023 End: 06-25-2023 benzonatate 100 mg capsule ; 1 (one) capsule tid prn cough for 0 days Quantity: 30 {Capsule} Refills: 0 Ordered: 25-Jun-2023 CHRISTINE Adkins Start: 01-Jun-2023 End: 25-Jun-2023 Status: Inactive cephalexin 500 mg oral capsule (11 sources) Cephalosporin Antibacterial Start: 05-27-2023 End: 06-06-2023 cephALEXin 500 mg capsule ; 2 (two) Capsule bid for 10 days Quantity: 40 {Capsule} Refills: 0 Ordered: 27-May-2023 MD Gonzalez Angel Start: 27-May-2023 End: 06-Jun-2023 Status: Inactive ciprofloxacin 500 mg oral tablet (20 sources) Quinolone Antimicrobial Start: 07-05-2023 End: 07-12-2023 ciprofloxacin 500 mg tablet ; 1 (one) Tablet two times daily for 7 days Quantity: 14 {Tablet} Refills: 0 Ordered: 05-Jul-2023 MD Gonzalez Angel Start: 05-Jul-2023 End: 12-Jul-2023 Status: Inactive Problems Active Problems Problem Classification Problem Date Documented Da te Episodic/Chronic Calculus of urinary tract (20 sources) Kidney stone; Translations: [Calculus of kidney] 03-21-2018 Episodic Chronic obstructive pulmonary disease and bronchiectasis (20 sources) Chronic obstructive lung disease; Translations: [Chronic obstructive pulmonary disease, unspecified] 08-11-2023 Chronic Chronic obstructive pulmonary disease and bronchiectasis (11 sources) Bronchitis; Translations: [Bronchitis, not specified as acute or chronic] 10-19-2022 Episodic Diverticulosis and diverticulitis (20 sources) Diverticulitis; Translations: [Diverticulitis of intestine, part unspecified, without perforation or abscess without bleeding] 07-23-2023 Chronic Essential hypertension (20 sources) Essential hypertension; Translations: [Essential (primary) hypertension] Onset: 03-09-2017 06-21-2023 Chronic Gastrointestinal hemorrhage (20 sources) Rectal hemorrhage; Translations: [Hemorrhage of anus and rectum] 09-16-2020 Episodic Genitourinary symptoms and ill-defined conditions (20 sources) Retention of urine; Translations: [Retention of urine, unspecified] Onset: 05-27-2015 06-21-2023 Episodic Gout and other crystal arthropathies (20 sources) Chronic primary gouty arthritis; Translations: [Idiopathic chronic gout, multiple sites, without tophus (tophi)] Onset: 03-09-2017 06-21-2023 Chronic Hyperplasia of prostate (20 sources) Benign prostatic hyperplasia; Translations: [Benign prostatic hyperplasia without lower urinary tract symptoms] 07-23-2023 Chronic Immunizations and screening for infectious disease (11 sources) Requires diphtheria, tetanus and pertussis vaccination; Translations: [Encounter for immunization] 03-18-2021 Episodic Miscellaneous mental health disorders (11 sources) Psychosexual dysfunction associated with inhibited sexual excitement; Translations: [Other sexual dysfunction not due to a substance or known physiological condition] 06-30-2011 Chronic Neoplasms of unspecified nature or uncertain behavior (1 source) Ependymoma ; 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, unspecified] Onset: 04-21-2017 06-21-2023 Chronic Neoplasms of unspecified nature or uncertain behavior (12 sources) Neoplastic disease; Translations: [Neoplasm of unspecified behavior of bone, soft tissue, and skin] Onset: 04-05-2017 06-21-2023 Episodic Osteoarthritis (20 sources) Osteoarthritis of left knee joint; Translations: [Unilateral primary osteoarthritis, left knee] 07-23-2023 Chronic Other aftercare (11 sources) Surgical follow-up; Translations: [Encounter for removal of sutures] 04-16-2017 Episodic Other aftercare (20 sources) Long-term (current) use of other medications 07-29-2011 Episodic Other connective tissue disease (11 sources) Inflammation of rotator cuff tendon; Translations: [Other shoulder lesions, unspecified shoulder] 06-20-2012 Episodic Other diseases of bladder and urethra (20 sources) Neurogenic bladder; Translations: [Neuromuscular dysfunction of bladder, unspecified] 07-23-2023 Chronic Other gastrointestinal disorders (20 sources) Constipation; Translations: [Constipation, unspecified] 09-14-2022 Episodic Other gastrointestinal disorders (20 sources) Diarrhea; Translations: [Diarrhea, unspecified] 06-02-2021 Episodic Past or Other Problems Problem Classification Problem Date Documented Date Episodic/Chronic Unclassified (1 source) WORK RELEASE FOR [place] Onset: 05-19-2017 Unclassified (11 sources) Breathing trouble - The breathing trouble [...] scheduled for PFT on 07/27/2023. 07-23-2023 Unclassified (11 sources) Cold Symptoms - Symptoms include nasal congestion and productive cough. The onset was 1 month(s) ago. The symptoms occur constantly. The patient describes this as mild. Note for Upper respiratory infection : Has been on ATB w/ no effect. Was treated bu [facility] as COPD recent;ly 07-14-2023 Unclassified (11 sources) Cold Symptoms - Symptoms include productive cough and wheezing. Note for Upper respiratory infection : Pt had nasal congestion and runny nose for 2 weeks - was treated with Cephalexin on 05/27/2023 for sinusitis; given tessalon perles on 06/01 and Doxycycline on 06/07/2023. Current symptoms are cough, chest congestion, wheezing, and shortness of breath. 06-25-2023 Unclassified (11 sources) Cold Symptoms - Symptoms include runny nose, dry cough, fever and chills. The onset was 1 week(s) ago. The symptoms occur constantly. The patient describes this as moderate in severity and worsening. Current treatment includes allergy medications and acetaminophen. Note for Upper respiratory infection : Diarrhea. Covid test negative yesterday AM. reviewed by [facility] 05-27-2023 Unclassified (11 sources) MCR Well Adult - In general [...] a neurogenic bladder, self catheterizes 04-08-2023 Unclassified (11 sources) Red swollen face - Started with facial itching last evening, redness and swelling started this morning. Thinks an insect may have bit the back of his neck a few days ago. Also has started to drink an Herbal Tea (Tapee tea) last week to help with joint pain. reviewed by [facility] 11-17-2022 Unclassified (11 sources) Cough - The onset of the [...] : mostly when laying down. reviewed by B 10-19-2022 Unclassified (11 sources) UTI - Symptoms include urinary frequency, [...] may be starting to improve. 10-13-2022 Unclassified (11 sources) Skin tags - Three skin tags on face. Here for removal. They get itchy and painful. bleed at time because they are easily traumatized. 08-03-2022 Unclassified (11 sources) Abdominal pain - The onset of [...] of tomatoes, cucumbers, and nuts 04-06-2022 Unclassified (11 sources) Well adult male - The patient feels well with minor complaints (Bilateral leg pain, right worse then left.), has good energy level and is sleeping well. The patient has a balanced diet. The patient exercises daily. The patient sleeps 6 (6-7) hours per night. Note for Well adult male : reviewed by B 03-20-2022 Unclassified (11 sources) UTI - Symptoms include dysuria (burning [...] , menopause or diaphragm use. 10-20-2021 Unclassified (11 sources) Well Adult, male - The patient [...] , has been gradually worsening. 03-18-2021 Unclassified (11 sources) UTI - Symptoms include dysuria, urinary frequency, urinary urgency and back pain. The pain is located in the back. Onset was sudden 4 day(s) ago. The symptoms occur constantly. The patient describes this as moderate in severity and worsening. Note for UTI : reviewed by [facility] 12-16-2020 Unclassified (11 sources) Rectal bleeding - The rectal bleeding [...] : Last colonoscopy done 08/2013. 04-18-2020 Unclassified (11 sources) UTI - Symptoms include dysuria, urinary frequency and urinary urgency, but do not include dark urine, malodorous urine or flank pain. Onset was sudden 3 day(s) ago. Onset followed catheterization. The symptoms occur constantly. The patient describes this as moderate in severity and worsening. Note for UTI : reviewed by [facility] 12-27-2019 Unclassified (11 sources) Flank pain - The onset of [...] from last incident of stone 03-21-2018 Unclassified (11 sources) Abdominal pain - The onset of [...] bring any supplies with him. 12-22-2017 Unclassified (11 sources) Review Test Results - Pt here today to discuss test results which he had done through his work. He had the Biometric Screening done and has some abnormal results and was required to see PCP to review and discuss. Has hx of HTN and Gout. Pt has results with him.b Lipids were borderline ( HDL 35 , LDL 126 ). 11-01-2017 Unclassified (11 sources) UTI - Symptoms include dysuria, urinary frequency and back pain. There is no radiation. The patient describes the pain as dull. Onset was sudden 1 day(s) ago. Onset followed catheterization. The symptoms occur constantly. The patient describes this as moderate in severity and worsening. Note for UTI : had back surgery last week. reviewed by [facility] 04-13-2017 Unclassified (11 sources) Constipation - The onset of the [...] done because of insurance issues. 11-18-2016 Unclassified (11 sources) UTI - Symptoms include urinary frequency, [...] and UTI did clear. reviewed by [facility] 04-24-2016 Unclassified (11 sources) UTI - Symptoms include dysuria, urinary frequency, urinary urgency and hematuria. Onset was sudden 3 day(s) ago. Onset followed catheterization (self caths twice a day.). The symptoms occur constantly. The patient describes this as moderate in severity and unchanged. Associated symptoms include chills and urinary retention, but do not include fever. Note for UTI : reviewed by [facility] 02-25-2016 Unclassified (11 sources) Change in bowel habits - The [...] legs are heavy and weak. 01-21-2016 Unclassified (11 sources) Back pain - The onset of [...] heard back for PT yet. 08-19-2015 Unclassified (11 sources) Increase blood pressure - Is currently on Lisinopril 10mg daily. Had an elevated blood pressure at [employer] physical. Here to discuss medication options.He also injured his left shoulder 2 weeks ago while carrying a heavy load in an awkward position. Fingers feel numb. pain radiates down left arm. 07-31-2015 Unclassified (11 sources) Back pain - The onset of [...] seen chiropracter in the past. 04-03-2014 Unclassified (11 sources) Well Adult, male - The patient [...] for Well Adult, male : reviewed by [facility] 12-04-2013 Unclassified (11 sources) Wart Removal - Pt here today to have wart on right middle finger. Has had this for couple months. Has used OTC medication which helped a little but has never gone completely away. He has caught it on different things and it cracks open but does not bleed. Just itches and very irritating. Here for evaluation and possible removal. reviewed by [facility] 10-27-2013 Unclassified (11 sources) Bowel Problems - Pt here today [...] have some stool can leak. 07-14-2013 Unclassified (11 sources) Diarrhea - The diarrhea has been [...] very foul smelling and slimy 11-30-2012 Unclassified (11 sources) Urine problems - Pt here this [...] torn it. reviewed by [facility] 06-20-2012 Unclassified (11 sources) Cold Symptoms - Symptoms include sneezing, [...] Note for Cold Symptoms : reviewed by [facility] 12-21-2011 Unclassified (11 sources) Well Adult, male - The patient [...] Well Adult, male : reviewed by B 10-30-2011 Unclassified (11 sources) Consultation - Would like to discuss personal issue. 06-30-2011 Unclassified (1 source) Cough, unspecified; Translations: [Cough, unspecified] Onset: 07-27-2023 Urinary tract infections (20 sources) Urinary tract infections 06-24-2022 Results Test Name Value Interpretation Reference Range Facil ity Vital Signs Date Time Vital Sign Value Performing Clinician Faci lity 09-02-2023 12:58-0500 Body temperature 97.2 [degF] Chas Alarcon LPN [employer] [facility] [employer] 09-02-2023 12:58-0500 Body weight 128.82 kg Chas Alarcon LPN [employer] [facility] [employer]. 09-02-2023 12:58-0500 Diastolic blood pressure 74 mm[Hg] Chas Alarcon LPN [employer] [facility] [employer] Encounters Encounter Date Encounter Type Care Provider Facility Start: 09-02-2023 End: 09-02-2023 Office outpatient visit 15 minutes Gonzalez Angel MD Work Phone: [facility] Start: 08-25-2023 End: 08-26-2023 ambulatory ABHIJIT GUTIERREZ [facility] Start: 08-11-2023 End: 08-11-2023 Orders Gonzalez Angel MD Work Phone: [facility] Start: 07-27-2023 End: 07-27-2023 ambulatory GONZALEZ [facility] Start: 07-23-2023 End: 07-23-2023 Office outpatient visit 15 minutes Gonzalez Angel MD Work Phone: [facility] Start: 07-14-2023 End: 07-14-2023 Office outpatient visit 15 minutes Gonzalez Angel MD Work Phone: [facility] Start: 06-25-2023 End: 06-25-2023 ambulatory [facility]US [facility] Start: 06-25-2023 End: 06-25-2023 Office outpatient visit 15 minutes Gonzalez Angel MD Work Phone: [facility] Start: 06-21-2023 ambulatory SELF SELF Facility:[facility] Start: 06-21-2023 End: 06-21-2023 Office outpatient new 45 minutes Julius Choudhary MD Work Phone: [facility] Procedures Date Procedure Procedure Detail Performing Clinician [...] RTN OFFICE VISIT - 6 mos rtn [facility] Start: 13-Oct-2023 7:10 MD [facility]el [facility] Start: 09-02-2023 Patient encounter procedure Medical; Hospital F/U - d/c 08/26, bronchitis [facility] Start: 02-Sep-2023 13:00 MD Gonzalez Angel Appointment Request [employer] [facility] Start: 04-23-2023 Influenza vaccination INFLUENZA VACCINE (#1) [facility] Start: 06-02-2021 Myocardial spect multiple studies Lexiscan Cardiolite Stress Test (61623) Start: 02-Jun-2021 Intent [employer] [facility]; [facility] [employer] Start: 04-23-2021 Influenza vaccination given INFLUENZA VACCINE (#1) [facility] Start: 04-23-2020 Influenza vaccination given INFLUENZA VACCINE (#1) [facility] Start: 2009 Colonoscopy COLONOSCOPY 10 YR [facility] Start: 2009 Prostate specific antigen measurement PROSTATE CANCER SCREENING DISCUSSION [facility] Start: 2009 Screening for malignant neoplasm of colon [facility] Start: 2009 Zoster vaccine hzv live for subcutaneous use ZOSTER (SHINGLES) VACCINE (1 of 2) [facility] Start: 2004 Screening for malignant neoplasm of colon COLORECTAL CANCER SCREENING DISCUSSION [facility] Start: 1999 Lipid panel LIPID SCREENING [facility] Start: 1994 Fasting lipid profile LIPID SCREENING [facility] Start: 1978 Third diphtheria, tetanus and acellular pertussis (DTaP) vaccination TDAP (ADULT) [facility] Start: 1977 ANNUAL WELLNESS VISIT ANNUAL WELLNESS VISIT [facility] Start: 1974 HIV screening HIV SCREENING DISCUSSION [facility] Start: 1971 Adult depression screening assessment DEPRESSION SCREENING [facility] Start: 1971 Depression screening using PHQ-9 (Patient Health Questionnaire 9) score DEPRESSION SCREENING [facility] Start: 1970 Diphtheria + pertussis + tetanus vaccine (product) DTAP/TDAP/TD VACCINE (1 - Tdap) [facility] Start: 1959 COVID-19 VACCINE (#1) COVID-19 VACCINE (#1) [facility] Start: 1959 Hepatitis C screening [facility] Start: 1959 [facility] post-voiding residual urine&/bladder cap OK SUMEET,POST-VOID RES,US,NON-IMAGING OK Charge Routine Urinary retention Ordered: 06/21/2023 [facility] Immunizations Immunization Date Immunization Notes Care Provider Fa cility 07-29-2022 influenza, high dose seasonal, preservative-free Gonzalez [facility] MD [facility]; [employer] [facility] 05-10-2022 COVID-Pfizer (30 MCG/0.3 ML) Gonzalze Angel MD [facility]: [facility]; [employer] [facility] 07-25-2021 COVID-Moderna (100 MCG/0.5 ML) Gonzalez Angel MD [facility]: [facility]; [employer]. 06-23-2021 influenza, injectabl e, quadrivalent, contains preservative Gonzalez Angel MD [facility]: [facility]; [employer]. 03-18-2021 tetanus toxoid, redu olivier diphtheria toxoid, and acellular pertussis vaccine, adsorbed Gonzalez Angel MD [facility]: [facility]; [facility] Payers Date Payer Category Payer Unknown [id number] 2022 Unknown [id number] 1960 Unknown [id number] 1959 Unknown [id number] 1959 Unknown [id number] 1959 Unknown [id number] Social History Date Type Detail Facility Tobacco smoking stat [facility] Unknown if ever smoked [facility] Start: 1960 Sex Assigned At Not on file [facility] Start: 06-21-2023 Tobacco smoking stat [facility] Ex-smoker [facility] End: 08-23-2002 History of tobacco use Current smoker [facility] End: 08-23-2002 History of tobacco use Cigarette Smoker [facility] Start: 06-21-2023 Tobacco use and exposure User of smokeless tobacco [facility] History of tobacco use Snuff User [facility] Start: 06-21-2023 Alcohol intake Ex-drinker (finding) [facility] Start: 06-21-2023 History of Social function [facility] Start: 06-21-2023 Tobacco use panel [facility] Alcohol Use: Alcohol Use: ; Moderate alcohol use. [facility] [employer] Tobacco Use: Tobacco Use: ; F ormer smoker. [facility].; [facility] [employer] Work Phone: Moderate alcohol use [facility].; [employer] Work Phone: History of Present illness Narrative 06-21-2023 Madison Castaneda - 06/21/2023 9:45 AM Quinn Choudhary MD - 06/21/2023 9:45 AM EDT Note Date & Type Note Facility 06-21-2023 History of Present illness Narrative Bladder scan was performed for a residual of 30 ml. Patient tolerated well with no complaints. Results recorded to IS flow sheet Referring provider: Self, Self Chief Complaint Urinary retention, second opinion HPI Mr. Lima is a 63 y.o. male with history [...] that surgery. 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 Brother. Had throat cancer [...] Comments:Father. Brother. 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 of Assistant Professor [employer] Technology Additional Source Comments (unrecognized sect ion and content) No Status Records FoundNo Status Records FoundNo Status Records FoundNo Status Records FoundNo Status Records FoundNo Status Records Found INFORMATION SOURCE (unrecogn ized section and content) DATE CREATED AUTHOR AUTHOR'S ORGANIZ ATION 04/27/2018 [facility] DATE CREATED AUTHOR AUTHOR'S ORGANIZ ATION 06/26/2021 [employer] DATE CREATED AUTHOR AUTHOR'S ORGANIZ ATION 04/02/2023 [facility] DATE CREATED AUTHOR AUTHOR'S ORGANIZ ATION 06/21/2023 [facility] DATE CREATED AUTHOR AUTHOR'S ORGANIZ ATION 08/27/2023 [facility] Reason for Visit (unrecogniz ed section and content) Specialty Diagnoses / Procedures Referred By Contmanny t Referred To Contact Urology Diagnoses cannot empty his bladder, Second opinion Procedures NEW UROLOGY Self, Self Julius Choudhary MD [address] [facility] [address] [place] [address] Referral ID Status Reason Start Date Expiration Date V isits Requested Visits Authorized [id number] Pending Review 06/21/2023 07/15/2024 1 1 FOR [...] BE BASED ON THE PRIMARY CLINICAL RECORDS. [employer] provides no warranty or guarantee of the accuracy or completeness of information in this document.
== END | disposition home or self-care (01) ==
LOC: CVS 08:02
PROVIDERS: PCP Family Medicine; Referring Provider Internal Medicine Critical Care Medicine; Visit Provider Internal Medicine Critical Care Medicine
DX: R06.2 Wheezing (principal)
CPT/HCPCS: 93306; Q9957; A4216; C8929

== ENCOUNTER → 2023-10-27 | Outpatient (CLI) | payer BC, SELFPAY | END | disposition home or self-care (01) | PROVIDERS: PCP Family Medicine; Referring Provider Internal Medicine Critical Care Medicine; Visit Provider Internal Medicine Critical Care Medicine | DX: G47.10 Hypersomnia, unspecified (principal); R06.2 Wheezing | CPT/HCPCS: 95810 ==

== ENCOUNTER → 2023-11-25 | Outpatient (CLI) | payer BC, SELFPAY | END | disposition home or self-care (01) | LOC: SL 12:32 | PROVIDERS: PCP Family Medicine; Visit Provider Internal Medicine Critical Care Medicine | DX: R69 Illness, unspecified (principal) ==

== ENCOUNTER → 2024-09-12 | Outpatient (CLI) | payer MEDICARE, OTHER, SELFPAY | END | disposition home or self-care (01) | PROVIDERS: PCP Family Medicine; Referring Provider Nurse Practitioner Family; Visit Provider Nurse Practitioner Family | DX: J41.0 Simple chronic bronchitis (principal) | CPT/HCPCS: 94060; 94726; 94729 ==

== ENCOUNTER → 2024-09-15 | Outpatient (CLI) | payer MEDICARE, OTHER, SELFPAY ==
[2024-09-15 12:37] VITALS: PULSE 100; PULSE 101; PULSE 102; PULSE 103; PULSE 106; PULSE 107; PULSE 91; PULSE 94; O2SAT 92; O2SAT 93; O2SAT 94; O2SAT 95
--- NOTE | 2024-09-19 09:53 | PCM.PSN.6M ---
PSN 6 Minute Walk Test 6 Minute Walk Test 6 Minute Walk Test: 6 Minute Walk Test PSN:6-Minute Walk Test Start: 09/15/24 12:36 Freq: Status: Active Protocol: RESP.6MINW Document 09/15/24 12:37 [facility] (Rec: 09/15/24 12:43 [facility] [id number]) 6 Minute Walk Test Date Performed 09/15/24 Time Performed 12:20 Height 6 ft Weight: 297 lb Weight in Pounds 297.[address]: Pratima Orozco Assistive device used: None Pre-test Oxygen Delivery Method Room Air Pulse Ox (%) 93 Pulse Rate (60-100 beats/min) 91 Dyspnea Andria Scale (0-10) 1 1st minute Oxygen Delivery Method Room Air Pulse Ox (%) 92 Pulse Rate (60-100 beats/min) 100 Dyspnea Andria Scale (0-10) 2 Number of Rests Taken 0 2nd minute Oxygen Delivery Method Room Air Pulse Ox (%) 93 Pulse Rate (60-100 beats/min) 101 H Dyspnea Andria Scale (0-10) 2 Number of Rests Taken 0 3rd minute Oxygen Delivery Method Room Air Pulse Ox (%) 93 Pulse Rate (60-100 beats/min) 102 H Dyspnea Andria Scale (0-10) 3 Number of Rests Taken 0 Reported Symptoms Increased Work of Breathing 4th minute Oxygen Delivery Method Room Air Pulse Ox (%) 93 Pulse Rate (60-100 beats/min) 103 H Dyspnea Andria Scale (0-10) 3 Number of Rests Taken 0 Reported Symptoms Increased Work of Breathing 5th minute Oxygen Delivery Method Room Air Pulse Ox (%) 94 Pulse Rate (60-100 beats/min) 107 H Dyspnea Andria Scale (0-10) 3 Number of Rests Taken 0 Reported Symptoms Increased Work of Breathing 6th minute Oxygen Delivery Method Room Air Pulse Ox (%) 94 Pulse Rate (60-100 beats/min) 106 H Dyspnea Andria Scale (0-10) 3 Number of Rests Taken 0 Reported Symptoms Increased Work of Breathing Post-test Oxygen Delivery Method Room Air Pulse Ox (%) 95 Pulse Rate (60-100 beats/min) 94 Dyspnea Andria Scale (0-10) 1 Full Laps Walked 16 Partial Lap, Number of Tiles Walked 11 Total Distance Walked (ft) 955 Interpretation Interpretation: The patient ambulated 955 feet over the course of 6 minutes beginning on room air without assistive devices. Pretesting oxygen saturation was noted to be 93% on room air. With ambulation, the patricia oxygen saturation was 92%. There was no significant exertional oxygen desaturation. Recommendations Recommendations: There is no indication for the use of supplemental oxygen at this time.
== END | disposition home or self-care (01) ==
LOC: PSN 12:20
PROVIDERS: PCP Family Medicine; Referring Provider Nurse Practitioner Family; Visit Provider Nurse Practitioner Family
DX: J41.0 Simple chronic bronchitis (principal)
CPT/HCPCS: 94618

== ENCOUNTER → 2024-10-24 | Outpatient (CLI) | payer MEDICARE, OTHER, SELFPAY | END | disposition home or self-care (01) | PROVIDERS: PCP Family Medicine; Referring Provider Nurse Practitioner Family; Visit Provider Nurse Practitioner Family | DX: G47.33 Obstructive sleep apnea (adult) (pediatric) (principal) | CPT/HCPCS: 98960; G0463 ==

== ENCOUNTER → 2024-11-02 | Outpatient (CLI) | payer MEDICARE, OTHER, SELFPAY | END | disposition home or self-care (01) | LOC: SL 11:19 | PROVIDERS: PCP Family Medicine; Referring Provider Nurse Practitioner Family; Visit Provider Nurse Practitioner Family | DX: Z00.00 Encounter for general adult medical examination without abnormal findings (principal) ==

== ENCOUNTER → 2025-02-07 | Outpatient (CLI) | payer MEDICARE, OTHER, SELFPAY | END | disposition home or self-care (01) | LOC: LAB 13:46 | PROVIDERS: PCP Family Medicine; Referring Provider Nurse Practitioner Family; Visit Provider Nurse Practitioner Family | DX: R05.9 Cough, unspecified (principal) | CPT/HCPCS: 36415; 86003 ==